=== PATIENT | female | born 1950 | race Caucasian/White ===

== ENCOUNTER 2018-06-23 17:29 | Emergency (ER) | payer MEDICARE ==
[~2018-06-23] VITALS: Ht 172.7 cm; Wt 72.0 kg
[~2018-06-23 17:29] MED LIST: APIX5TAB3 PO; BUPR200T2 PO; LISI40TA4 PO; SOTA80TA46 PO; THYR180T2 PO; TRAZ150T78 PO
[2018-06-23 18:34] VITALS: BP 139/68
--- NOTE | 2018-06-23 20:25 | NUR ---
PT TO XRAY
[2018-06-23] MEDS ORDERED: ACET1TAB12 PO (20:51)
== END 2018-06-23 21:05 | disposition home or self-care (01) ==
LOC: ER 17:29
DX: M25.552 Pain in left hip (principal); M25.551 Pain in right hip; R20.0 Anesthesia of skin; I10 Essential (primary) hypertension; Z98.890 Other specified postprocedural states; Z88.8 Allergy status to other drugs, medicaments and biological substances; Z79.899 Other long term (current) drug therapy; W01.0XXA Fall on same level from slipping, tripping and stumbling without subsequent striking against object, initial encounter; Y93.89 Activity, other specified; Y92.89 Other specified places as the place of occurrence of the external cause; Y99.8 Other external cause status
CPT/HCPCS: 72170; 72190; 99284

== ENCOUNTER 2019-03-10 17:48 | Emergency (ER) | payer MEDICARE ==
[~2019-03-10] VITALS: Ht 172.7 cm; Wt 72.7 kg
[~2019-03-10 17:48] MED LIST changes: +ACET1TAB12 PO
[2019-03-10 17:54] VITALS: BP 136/70
== END 2019-03-10 18:55 | disposition home or self-care (01) ==
LOC: ER 17:49
DX: S42.031A Displaced fracture of lateral end of right clavicle, initial encounter for closed fracture (principal); I10 Essential (primary) hypertension; F41.9 Anxiety disorder, unspecified; F32.9 Major depressive disorder, single episode, unspecified; F10.99 Alcohol use, unspecified with unspecified alcohol-induced disorder; Z98.890 Other specified postprocedural states; Z85.3 Personal history of malignant neoplasm of breast; Z88.6 Allergy status to analgesic agent; Z79.899 Other long term (current) drug therapy; W01.0XXA Fall on same level from slipping, tripping and stumbling without subsequent striking against object, initial encounter; Y93.89 Activity, other specified; Y92.89 Other specified places as the place of occurrence of the external cause; Y99.8 Other external cause status; Y90.9 Presence of alcohol in blood, level not specified
CPT/HCPCS: 73030; 99284

== ENCOUNTER 2020-06-22 19:27 | Emergency (ER) | payer MEDICARE ==
[~2020-06-22] VITALS: Ht 172.7 cm; Wt 73.0 kg
[2020-06-22] MEDS ORDERED: morphine 4 MG/ML inj SYRINge IV ONE (19:40)
[2020-06-22] MEDS ORDERED: ondansetron/PF 4mg/2ml inj IV ONE ×3 (19:40→21:15)
[2020-06-22] MEDS ORDERED: etomidate 2mg/ml inj. IV ONE (20:30)
[2020-06-22] MEDS ORDERED: ONDA4TAB6 PO ×2 (20:30→21:58)
[2020-06-22] MEDS ORDERED: fentaNYL/PF 50MCG/1 ML 2ML syringe IV ONE ×3 (20:30→22:00)
[2020-06-22] MEDS ORDERED: HYDR-3965 PO (20:30)
[2020-06-22] MEDS ORDERED: HYDR-4353 PO (21:58)
[2020-06-22] MEDS ORDERED: ondansetron 4mg rapidly disintigrating tab PO ONE (22:00)
[2020-06-22] MEDS ORDERED: HYDROcodone/acetaminophen 10/325mg tab PO ONE (22:00)
[2020-06-22 23:29] VITALS: BP 130/54
== END 2020-06-22 22:48 | disposition home or self-care (01) ==
LOC: ER 19:29
DX: S43.004A Unspecified dislocation of right shoulder joint, initial encounter (principal); S00.03XA Contusion of scalp, initial encounter; S06.0X0A Concussion without loss of consciousness, initial encounter; S42.201A Unspecified fracture of upper end of right humerus, initial encounter for closed fracture; M25.511 Pain in right shoulder; I48.91 Unspecified atrial fibrillation; I10 Essential (primary) hypertension; F32.9 Major depressive disorder, single episode, unspecified; F41.9 Anxiety disorder, unspecified; Z85.3 Personal history of malignant neoplasm of breast; Z98.890 Other specified postprocedural states; Z88.8 Allergy status to other drugs, medicaments and biological substances; Z79.899 Other long term (current) drug therapy; W18.39XA Other fall on same level, initial encounter; Y93.89 Activity, other specified; Y92.89 Other specified places as the place of occurrence of the external cause; Y99.8 Other external cause status
CPT/HCPCS: 23650; 70450; 72125; 73020; 73030; 94799; 96374; 99152; 99285; J2270; J2405; J3010; 96375; 96376

== ENCOUNTER 2020-09-26 18:43 | Emergency (ER) | payer MEDICARE ==
[~2020-09-26] VITALS: Ht 172.7 cm; Wt 73.6 kg
[~2020-09-26 18:43] MED LIST changes: +LISI40TA13 PO; -LISI40TA4 PO; +ONDA4TAB6 PO
[2020-09-26 18:56] VITALS: BP 135/79
[2020-09-26] MEDS ORDERED: ketorolac tromethamine 15mg/ml inj. IM ONE (20:55)
== END 2020-09-26 21:24 | disposition home or self-care (01) ==
LOC: ER 18:44
DX: M25.511 Pain in right shoulder (principal); M25.521 Pain in right elbow; I48.91 Unspecified atrial fibrillation; I10 Essential (primary) hypertension; F41.9 Anxiety disorder, unspecified; F32.9 Major depressive disorder, single episode, unspecified; Z72.89 Other problems related to lifestyle; Z98.890 Other specified postprocedural states; Z85.3 Personal history of malignant neoplasm of breast; Z91.041 Radiographic dye allergy status; Z79.899 Other long term (current) drug therapy; Z79.01 Long term (current) use of anticoagulants; W01.0XXA Fall on same level from slipping, tripping and stumbling without subsequent striking against object, initial encounter; Y93.89 Activity, other specified; Y92.89 Other specified places as the place of occurrence of the external cause; Y99.8 Other external cause status
CPT/HCPCS: 73030; 73080; 96372; 99284; J1885

== ENCOUNTER 2022-05-05 13:43 | Emergency (ER) | payer MEDICARE ==
[~2022-05-05] VITALS: Ht 175.3 cm; Wt 64.5 kg
[2022-05-05 13:46] VITALS: BP 123/70
--- NOTE | 2022-05-05 13:59 | NUR ---
SPOKE TO DRAGAN MCGRAW, CALL OFF TRAUMA, SINCE NO LOC. PT TO GO TO CT.
[2022-05-05] MEDS ORDERED: HYDROcodone/acetaminophen 10/325mg tab PO ONE (15:40)
== END 2022-05-05 16:45 | disposition home or self-care (01) ==
LOC: ER 13:44
DX: M25.562 Pain in left knee (principal); Z04.3 Encounter for examination and observation following other accident; I10 Essential (primary) hypertension; Z91.041 Radiographic dye allergy status; W19.XXXA Unspecified fall, initial encounter; Y93.89 Activity, other specified; Y92.89 Other specified places as the place of occurrence of the external cause; Y99.8 Other external cause status; R51.9 Headache, unspecified; M54.2 Cervicalgia
CPT/HCPCS: 70450; 72125; 73502; 99284

== ENCOUNTER → 2022-07-15 | Outpatient (CLI) | payer MEDICARE | END | disposition home or self-care (01) | LOC: RAD 13:43 | PROVIDERS: ATTEND Otolaryngology | DX: J31.0 Chronic rhinitis (principal); J34.2 Deviated nasal septum; R26.89 Other abnormalities of gait and mobility | CPT/HCPCS: 70486 ==

== ENCOUNTER 2022-12-20 01:28 | Emergency (ER) | payer MEDICARE | END 2022-12-20 02:20 | disposition left against medical advice (07) | LOC: ER 02:20 | DX: T14.8XXA Other injury of unspecified body region, initial encounter (principal); Z53.21 Procedure and treatment not carried out due to patient leaving prior to being seen by health care provider; W55.01XA Bitten by cat, initial encounter; Y93.89 Activity, other specified; Y92.89 Other specified places as the place of occurrence of the external cause; Y99.8 Other external cause status ==

== ENCOUNTER 2023-03-03 15:59 | Outpatient (CLI) | payer MEDICARE ==
[2023-03-03 17:58] LABS: BASOPHILS # (AUTO) 0.1 X10'3 (0-0.2); BASOPHILS % (AUTO) 1.1 % (0-1); EOSINOPHILS # (AUTO) 0.1 X10'3 (0-0.9); EOSINOPHILS % (AUTO) 1.3 % (0-6); HEMATOCRIT 34.5 % (35.0-45.0); HEMOGLOBIN 11.6 g/dl (12.0-16.0); LYMPHOCYTES # (AUTO) 1.5 X10'3 (1.1-4.8); LYMPHOCYTES % (AUTO) 16.8 % (21-51); MEAN CORPUSCULAR HEMOGLOBIN 29.7 PG (27.0-31.0); MEAN CORPUSCULAR HGB CONC 33.7 g/dL (33.0-36.5); MEAN CORPUSCULAR VOLUME 88.1 FL (78-98); MEAN PLATELET VOLUME 9.4 FL (7.4-10.4); MONOCYTES # (AUTO) 0.9 X10'3 (0-0.9); MONOCYTES % (AUTO) 9.7 % (2-12); NEUTROPHILS # (AUTO) 6.5 X10'3 (1.8-7.7); NEUTROPHILS % (AUTO) 71.1 % (42-75); PLATELET COUNT 181 X10'3 (140-440); RED BLOOD COUNT 3.91 X10'6 (4.20-5.60); WHITE BLOOD COUNT 9.1 X10'3 (4.5-11.0)
[2023-03-03 17:59] LABS: ALANINE AMINOTRANSFERASE 24 U/L (12-78); ALBUMIN 3.2 G/DL (3.4-5.0); ALBUMIN/GLOBULIN RATIO 0.7 (1.1-1.5); ALKALINE PHOSPHATASE 89 IU/L (46-116); ANION GAP 9 (8-16); ASPARTATE AMINO TRANSFERASE 23 U/L (10-37); BILIRUBIN,TOTAL 0.4 MG/DL (0.1-1.0); BLOOD UREA NITROGEN 17 MG/DL (7-18); BUN/CREATININE RATIO 18.5 (10.0-20.0); CALCIUM 9.4 MG/DL (8.5-10.1); CHLORIDE 103 MMOL/L (99-107); CREATININE 0.92 MG/DL (0.40-0.90); GLUCOSE 94 MG/DL (70-104); POTASSIUM 4.5 MMOL/L (3.5-5.1); SODIUM 137 MMOL/L (135-145); TOTAL PROTEIN 7.7 G/DL (6.4-8.2); eGFR 60 ML/MIN
[2023-03-03 18:09] LABS: THYROID STIMULATING HORMONE 0.11 ulU/ml (0.34-4.50)
[2023-03-03 18:20] LABS: HEMOGLOBIN A1C 5.5 % (4.5-6.2)
[2023-03-03 18:23] LABS: RHEUM FACTOR QUAL REFLEX TITER NEGATIVE (Neg)
== END 2023-03-03 23:59 | disposition home or self-care (01) ==
LOC: LAB 15:59
PROVIDERS: ATTEND Nurse Practitioner Family
DX: R20.2 Paresthesia of skin (principal); Z79.899 Other long term (current) drug therapy; W19.XXXS Unspecified fall, sequela
CPT/HCPCS: 36415; 80053; 82164; 82595; 82607; 82746; 82784; 83036; 84425; 84439; 84443; 85025; 85651; 86038; 86140; 86235; 86256; 86334; 86430; 86592; 86617; 86803; 87389; 87522

== ENCOUNTER 2024-09-28 14:00 | Outpatient (CLI) | payer MEDICARE | END 2024-09-28 23:59 | disposition home or self-care (01) | LOC: MRI02 14:00 | PROVIDERS: ATTEND Physician Assistant | DX: M51.17 Intervertebral disc disorders with radiculopathy, lumbosacral region (principal); M54.50 Low back pain, unspecified; M41.9 Scoliosis, unspecified; M47.27 Other spondylosis with radiculopathy, lumbosacral region; M48.07 Spinal stenosis, lumbosacral region; M43.16 Spondylolisthesis, lumbar region | CPT/HCPCS: 72148 ==

== ENCOUNTER 2024-11-01 15:12 | Inpatient (IN) | payer MEDICARE ==
[~2024-11-01] VITALS: Ht 175.3 cm; Wt 72.7 kg
--- NOTE | 2024-11-01 15:27 | Physician Documentation ---
History of Present Illness ~ Chief Complaint: Stroke Alert Stated Complaint: SLURRED SPEACH TINGLING HANDS Time Seen by MD: 15:26 Primary Medical Doctor: leanne lopez/ [facility] HPI 74-year-old female, history of atrial fibrillation on Eliquis, who presents with difficulty with speech History is obtained from the patient and her . They state that she was last seen normal last night. This morning her states that she was having fluctuating difficulty with her speech, sometimes had dysarthria and was very difficult to understand. She also seemed to have some trouble walking and seemed off balance. She reports that she had tingling and numbness to both hands and feet earlier. Currently she states that her symptoms seem somewhat better although her speech is still not back to normal. Reports generalized weakness in her legs. The tingling and numbness in her extremities has improved. She does report being under lot of stress yesterday, and had some bad dreams last night. No history of stroke. She has been taking her Eliquis regularly. No fevers or infectious symptoms. Medication Reconciliation Allergies: Coded Allergies: Iodine and Iodide Containing Produc (Unverified Allergy, Unknown, 11/01/24) Scheduled Apixaban (Eliquis), 5 MG PO BID, (Reported) Bupropion HCl (Wellbutrin Sr), 1 TAB PO Q12H, (Reported) Diltiazem Hcl SR* (Cardizem SR*), 2 CAP PO BID, (Reported) Lamotrigine* (Lamictal Xr*), 1 TAB PO DAILY, (Reported) Quetiapine Fumarate* (Seroquel*), 1 TAB PO HS, (Reported) Sacubitril/Valsartan (Entresto 24 mg-26 mg Tablet), 1 TAB PO Q12H, (Reported) Thyroid,Pork (Sage Thyroid), 60 MG PO DAILY, (Reported) Discontinued Medications Acetaminophen with Codeine (Tylenol with Codeine #3 Tablet), 1 TAB PO Q6H PRN Discontinued Reason: patient no longer taking Bupropion Hcl (Wellbutrin Sr), 200 MG PO DAILY, (Reported) Discontinued Reason: patient no longer taking Lisinopril* (Lisinopril*), 10 MG PO DAILY, (Reported) Discontinued Reason: patient no longer taking Ondansetron Hcl (Zofran), 1 TAB PO Q6H Discontinued Reason: patient no longer taking Sotalol HCl (Sotalol), 80 MG PO BID, (Reported) Discontinued Reason: patient no longer taking Trazodone Hcl (Trazodone Hcl), 150 MG PO HS, (Reported) Discontinued Reason: patient no longer taking Past Medical History Past Medical History: Atrial Fibrillation, Hypertension, Breast Cancer, *PSYCH*, Anxiety, Depression Past Surgical History: orthopedic surgeries Alcohol Use: Occasionally Drug Use: none Lives with: Family Lives In: Home Occupation: retired Review of Systems Constitutional: Denies: fever Neurological: Reports: speech problem, dizziness, left sided numbness, right sided numbness, problems walking Physical Exam Vital Signs: Temperature: 98.1, Heart Rate: 69, Respiratory Rate: 16, BP: 115/68, Pulse Oximetry: 99, Weight: 72.730 Oxygen Flow Rate: 0 General Appearance General: This is a pleasant and overall well-appearing older female, at bedside HEENT: Atraumatic, oropharynx is moist Heart: Regular rate, but irregular rhythm, appears atrial fibrillation on the monitor Lungs: Clear breath sounds bilateral, normal work of breathing, normal oxygen saturation on room air Abdomen: Soft, nondistended, nontender all quadrants Extremities: Warm and well-perfused Neuro: Alert and oriented. No facial droop. The patient does have slightly slow speech pattern, but only mild dysarthria. Extraocular movements appear intact, no nystagmus. Vision grossly normal. Normal sensation light touch in all 4 extremities. She does seem to have some mild weakness in the right leg compared to the left, and does have some trouble lifting it holding it up off the bed. Appears to have normal strength in the left leg. Normal strength in both hands. Ambulation was not attempted. Psychiatric: Calm and cooperative with exam Progress Results/Orders Results/Orders Medications Received in ER Medications (Trade) Dose Ordered Sig/Bharti Route PRN Reason Start Time Stop Time Status Last Admin Dose Admin (Benadryl inj.) 25 mg ONCE ONCE IV 11/01/24 17:40 11/01/24 17:41 DC 11/01/24 18:04 25 MG Vital Signs 11/01/24 11/01/24 11/01/24 11/01/24 15:16 15:30 17:04 18:41 Temp 98.1 Pulse 69 89 67 Resp 16 15 15 B/P (MAP) 115/68 130/87 (101) 135/65 (88) Pulse Ox 99 98 100 100 O2 Delivery Room Air* O2 Flow Rate 0 0 FiO2 21 Laboratory Tests Test 11/01/24 15:24 11/01/24 15:26 Glucometer 122 H White Blood Count 5.4 Red Blood Count 4.43 Hemoglobin 12.9 Hematocrit 38.6 Mean Corpuscular Volume 87.2 Mean Corpuscular Hemoglobin 29.0 Mean Corpuscular Hemoglobin Concent 33.3 Red Cell Distribution Width 15.3 H Platelet Count 215 Mean Platelet Volume 9.1 Neutrophils (%) (Auto) 44.4 Lymphocytes (%) (Auto) 39.9 Monocytes (%) (Auto) 10.5 Eosinophils (%) (Auto) 3.8 Basophils (%) (Auto) 1.4 H Neutrophils # (Auto) 2.4 Lymphocytes # (Auto) 2.1 Monocytes # (Auto) 0.6 Eosinophils # (Auto) 0.2 Basophils # (Auto) 0.1 CBC Comment Prothrombin Time 10.9 INR International Normalized Ratio 1.1 Activated Partial Thromboplast Time 27 Coagulation Comments Sodium Level 144 Potassium Level 4.2 Chloride Level 108 H Carbon Dioxide Level 26.7 Anion Gap 9 Blood Urea Nitrogen 24 H Creatinine 1.24 H Estimated GFR/1.73 m2 42 BUN/Creatinine Ratio 19.4 Glucose Level 116 H Calcium Level 9.1 Albumin 3.5 Thyroid Stimulating Hormone (TSH) 3.28 Chemistry Comments EKG/XRAY/CT/US/VASC/MRI EKG : Additional Comment I personally interpreted the EKG and this shows: Atrial fibrillation, rate 75, nonspecific T-wave changes in lead 3, no STEMI Chest X-Ray : Additional Comments I personally reviewed the x-ray, and it shows: No focal consolidation, normal mediastinum, no pulmonary edema CT : Impression I personally reviewed the CT scan, and this shows no intracranial hemorrhage, mass, or obvious abnormality Medical Decision Making Findings Dr. Gonsalves: Assume care of patient to follow up CTA. CTA is negative. We will admit for further workup for possible stroke. No TNK indicated Differential Dx:Considerations: Include: CVA, Electrolyte imbalance, Encephalopathy, Mass lesion, Subarachnoid Hemorrhage, TIA, Other Additional Information Differential includes stress reaction or conversion disorder Assessment The patient presents with difficulty with speech and ambulation as well as some paresthesias. Her symptoms have been ongoing since last night and she was not a candidate for tPA. She was taken for emergent brain imaging which shows no intracranial hemorrhage. Labs are grossly unremarkable. Stroke neurology consulted, see their note for further information. A CTA of the head and neck is pending, the patient was pretreated with IV Benadryl for possible iodine allergy. If this is normal she will require admission for further evaluation and testing including MRI. The exact cause of her symptoms is unclear, but stroke remains high in the differential. Departure Admitted to Inpatient Unit: yes, to hospitalist Impression: Primary Impression: Possible stroke Referrals: NO PRIMARY CARE PROVIDER (PCP) Critical Care Note Total Time (mins): 45 Critical Care Note The very real possibility of a deterioration of this patient's condition required the highest level of my preparedness for sudden, emergent intervention. I provided critical care services, which included medication orders, frequent reevaluations of the patient's condition and response to treatment, ordering and reviewing test results, and discussing the case with various consultants. Excludes time spent performing separately billable procedures. The critical care time associated with the care of the patient was 45 minutes not counting procedures Signature Scribe Signature: na Attestation: The note accurately reflects work and decisions made by me.César Gonsalves MD 11/01/24 19:02 ILAN Wasserman MD November 01, 2024 15:27 CÉSAR GONSALVES MD November 01, 2024 19:02
[2024-11-01 15:38] LABS: BASOPHILS # (AUTO) 0.1 X10'3 (0-0.2); BASOPHILS % (AUTO) 1.4 % (0-1); EOSINOPHILS # (AUTO) 0.2 X10'3 (0-0.9); EOSINOPHILS % (AUTO) 3.8 % (0-6); HEMATOCRIT 38.6 % (35.0-45.0); HEMOGLOBIN 12.9 g/dl (12.0-16.0); LYMPHOCYTES # (AUTO) 2.1 X10'3 (1.1-4.8); LYMPHOCYTES % (AUTO) 39.9 % (21-51); MEAN CORPUSCULAR HGB CONC 33.3 g/dL (33.0-36.5); MEAN CORPUSCULAR VOLUME 87.2 FL (78-98); MEAN PLATELET VOLUME 9.1 FL (7.4-10.4); MONOCYTES # (AUTO) 0.6 X10'3 (0-0.9); MONOCYTES % (AUTO) 10.5 % (2-12); NEUTROPHILS # (AUTO) 2.4 X10'3 (1.8-7.7); NEUTROPHILS % (AUTO) 44.4 % (42-75); PLATELET COUNT 215 X10'3 (140-440); RED BLOOD COUNT 4.43 X10'6 (4.20-5.60); RED CELL DISTRIBUTION WIDTH 15.3 % (11.5-14.5); WHITE BLOOD COUNT 5.4 X10'3 (4.5-11.0)
--- NOTE | 2024-11-01 15:40 | ELECTROCARDIOGRAPH REPORT ---
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 Sin Jasso Measurements Intervals [place] Rate: 75 P: 0 NE: 0 QRS: 64 QRSD: 88 T: 15 QT: 380 QTc: 425 Interpretive Statements Atrial fibrillation Low voltage, precordial leads Abnormal R-wave progression, early transition Electronically Signed On 11-07-2024 21:45:[address] Sin Jasso Please click the below link to view image of tracing.
--- NOTE | 2024-11-01 15:47 | RADIOLOGY REPORT ---
CT CT STROKE ALERT Indication: Stroke Alert EXAM DATE: 11/01/2024 03:28 PM COMPARISON: CT HEAD on DOS: 05/05/22, CT HEAD on DOS: 06/22/20 TECHNIQUE: CT of the head without intravenous contrast. RADIATION DOSE: CTDIvol: 57 mGy, DLP: 1042 mGy*cm FINDINGS: There is no intracranial hemorrhage. There is no extra-axial fluid, mass, mass effect or midline shif t. The ventricles are midline and normal in size. Basilar cisterns are patent. There are meiu-wf-ktxn rate periventricular and subcortical white matter chronic microvascular ischemic changes. There is mi ld global cerebral volume loss. The paranasal sinuses and mastoids are well-pneumatized. Imaged portion of the orbits are unremarkabl e. IMPRESSION: 1. No intracranial hemorrhage or mass effect. 2. Jpnw-fj-kvjnwrkg chronic microvascular ischemic changes.
[2024-11-01 15:56] LABS: ALBUMIN 3.5 G/DL (3.4-5.0); ANION GAP 9 (8-16); BLOOD UREA NITROGEN 24 MG/DL (7-18); BUN/CREATININE RATIO 19.4 (10.0-20.0); CALCIUM 9.1 MG/DL (8.5-10.1); CHLORIDE 108 MMOL/L (99-107); CREATININE 1.24 MG/DL (0.40-0.90); GLUCOSE 116 MG/DL (70-104); POTASSIUM 4.2 MMOL/L (3.5-5.1); SODIUM 144 MMOL/L (135-145); TOTAL CARBON DIOXIDE 26.7 MMOL/L (24-32); eCRCL 42 ML/MIN; eGFR 42 ML/MIN
[2024-11-01] MEDS ORDERED: LAMO50TA PO (16:02)
[2024-11-01] MEDS ORDERED: QUET-1 PO (16:02)
[2024-11-01] MEDS ORDERED: BUPR150T8 PO (16:02)
[2024-11-01] MEDS ORDERED: CARSR60C PO (16:02)
[2024-11-01] MEDS ORDERED: SACU1TAB PO (16:02)
[2024-11-01 16:03] LABS: APTT 27 SECONDS (22-32); INR 1.1 INR; PROTHROMBIN TIME 10.9 SECONDS (9.0-12.0)
--- NOTE | 2024-11-01 16:13 | RADIOLOGY REPORT ---
CHEST RADIOGRAPH Indication: Stroke Alert Technique: Single frontal view of the chest was obtained Comparison: None FINDINGS: Lines and Tubes: None Lungs: No focal consolidation. Pleura: No effusion. No pneumothorax. Cardiomediastinal contours: Unremarkable Bones: No acute osseous abnormality. IMPRESSION: No acute cardiopulmonary disease.
[2024-11-01 16:20] LABS: THYROID STIMULATING HORMONE 3.28 ulU/ml (0.34-4.50)
[2024-11-01] MEDS ORDERED: iohexol 350MG/ML 100ml bottle IV ONE (17:51)
[2024-11-01] MEDS: diphenhydrAMINE 50 mg/ml inj IV ONE (18:04)
--- NOTE | 2024-11-01 18:39 | [facility] CONSULT REPORT ---
[facility] Procedure Note [facility] Procedure Note Consult [facility] Note # Demographics Consult Type: Acute Stroke Level 2 (4.5-24 hrs) Patient Location: Emergency Room First Name: GLADIS Last Name: MANFRED Date of : 1950 Age: 74 Gender: Female Facility: [facility] Time of Initial Page (): 11/01/2024 16:45 Time of Return Call (): 11/01/2024 16:46 # HPI Chief Complaint: - speech changes History: 74 y/o F presented with slurred speech, generalized weakness, began last night at 9 PM. She feels her yareli is slow with her speech and she had some generalized weakness and tingling b/l. She denies a headache or change in vision. # Scores Time of exam and NIHSS ([place] ): 11/01/2024 16:58 Level of Consciousness 1a: [0] = Alert; keenly responsive LOC Questions 1b: [0] = Answers both questions correctly LOC Commands 1c: [0] = Performs both tasks correctly Best Gaze 2: [0] = Normal Visual 3: [0] = No visual loss Facial Palsy 4: [0] = Normal symmetrical movements Motor Arm Left 5a: [1] = Drift Motor Arm Right 5b: [1] = Drift Motor Leg Left 6a: [0] = No drift Motor Leg Right 6b: [3] = No effort against gravity Limb Ataxia 7: [0] = Absent Sensory 8: [0] = Normal Best Language 9: [1] = Rxis-hn-csioygcj aphasia Dysarthria 10: [0] = Normal Extinction and Inattention 11: [0] = No abnormality NIHSS Total: 6 # PMH-FH-SH Past Medical History: - A-fib [place]imotos Medications: - NOAC # Data Head CT: - no bleed - per radiologist read # Assessment Impression: - Ischemic Stroke (Acute) # Plan Thrombolytic/Intervention: Possible IA candidate Thrombolytic Exclusion: > 4.5 hours Possible IA Candidate: - CTA pending Labs: - CBC - comprehensive metabolic panel - hemoglobin A1c - lipid panel - ua - TSH - troponin Imaging: (urgency: STAT): - CT Angiogram Head and CT Angiogram Neck Imaging: (urgency: routine): - MRI Brain without contrast Diagnostic Test: - echo with bubble study Therapy/Evaluation: - NPO until swallow evaluation - PT/OT evaluation Medication: - anticoagulation with NOAC - start statin with goal of LDL < 70 DVT Prophylaxis: - SCD IA Management Recommendations: - urgent consult to Neuro Interventional Radiology for potential thrombectomy if CTA shows large vessel occlusion Other: - If patient has any neurological deterioration please call me back immediately - telemetry monitoring - I have discussed my recommendations with the referring provider - LDL < 70 - permissive hypertension Disposition: admit # Logistics Attestation of consult completion: The patient is located at: [facility]. Facility staff participated in the visit. I performed this telemedicine visit from my offsite office utilizing interactive 2 way audio and visual telecommunication technology. Total time spent in telemedicine encounter: I spent 20 minutes reviewing clinical data and/or imaging, obtaining history, examining the patient, communicating with the onsite care team, and in preparation of this report. # Demographics First Name: GLADIS Last Name: MANFRED Facility: [facility] Electronically signed at 11/01/2024 18:39 ([place] Time) by Sulma Hancock MD Neuro Consult Order placed for: Yes SULMA HANCOCK MD November 01, 2024 18:39
--- NOTE | 2024-11-01 19:00 | RADIOLOGY REPORT ---
Clinical History stroke, difficulty with speech and right leg weak Comparison CT HEAD on 11/01/2024, 202 images. Technique: MIPS reconstruction was performed in multiple planes. All CT scans at this medical facility are performed using dose modulation techniques as appropriate t o a performed exam including the following: Automated exposure control was utilized; adjustment of th e mA and/or kV according to patient size; and use of iterative reconstruction technique. All CT studies are reported to the Dose Index Registry of the [employer]. 3D images be reconstructed or obtained with maximum intensity projection postprocessing (MIP), volume rendered or other 3D technique. Validated velocity measurements with angiographic measurements, velocity criteria are extrapolated fr om diameter data as defined by the Society of Radiologists in Ultrasound Consensus Conference Radiolo gy 2003; 229; 340-346. There is 0 % stenosis using NASCET criteria. Contrast: 100 ML OMNIPAQUE 350 Radiation Dose: CTDI (mGy): 27.31; DLP (mGy-cm): 968.25 GLADIS SHEARER, [id number] TECHNIQUE: CT angiography of the head and neck was performed with 3D/MIP coronal, sagittal, and bila teral oblique reconstructions for evaluation of the cervical vasculature as well as the [place] of Romie lis. FINDINGS: CTA Neck: The imaged aortic arch is normal. The innominate and bilateral subclavian arteries are patent. The right common and internal carotid arteries are patent. The left common and internal carotid arteries are patent. The right vertebral artery is patent. The left vertebral artery is patent. No evidence of hemodynamically significant stenosis, dissection, or pseudoaneurysm. CTA Head: No significant intracranial atherosclerotic disease. The right intracranial internal carotid artery is patent. The right middle cerebral artery and its major branches are patent. The right anterior cerebral artery and its major branches are patent. The left intracranial internal carotid artery is patent. The left middle cerebral artery and its major branches are patent. The left anterior cerebral artery and its major branches are patent. The vertebrobasilar system is patent. The posterior inferior cerebellar arteries are patent. The anterior inferior cerebellar arteries are patent. The superior cerebellar arteries are patent. The posterior cerebral arteries are patent. There is no aneurysm, arterial occlusion, or vascular malformation. While the study was optimized for arterial evaluation, the dural venous sinuses demonstrates no defin ite evidence of thrombosis. Nonvascular Findings: The soft tissues of the neck are grossly unremarkable. The visualized lungs are clear. No aggressive or acute osseous lesion identified. IMPRESSION: CTA HEAD: No vessel cut off, significant stenosis, or saccular aneurysm. No significant intracranial atherosclerotic disease. CTA NECK: No hemodynamically significant stenosis, dissection, or pseudoaneurysm. This report was electronically signed by Ashok England MD on 11/01/2024 6:56:59 PM.
[2024-11-01] MEDS ORDERED: potassium Cl 40MEQ/1/2NS 520ml 520 ML IV PRN (19:45)
[2024-11-01] MEDS ORDERED: ondansetron/PF 4mg/2ml inj IV PRN (19:45)
[2024-11-01] MEDS ORDERED: acetaminophen 325mg tablet PO PRN (19:45)
[2024-11-01] MEDS ORDERED: mag hydrox/Alum hydrox/simeth 30ml oral suspension PO PRN (19:45)
[2024-11-01] MEDS ORDERED: magnesium hydroxide 30ml (MOM) UD suspension PO PRN (19:45)
[2024-11-01] MEDS ORDERED: potassium Cl 20 mEq SR tablet PO PRN ×2 (19:45)
[2024-11-01] MEDS ORDERED: magnesium sulf-water 2g/50mL 50 ML IV PRN (19:45)
[2024-11-01] MEDS ORDERED: magnesium Cl slow-release 64mg tablet PO PRN (19:45)
[2024-11-01] MEDS ORDERED: magnesium sulf-water 4G/100mL 100 ML IV PRN (19:45)
[2024-11-01] MEDS: diltiazem SR 60mg capsule (twice daily) PO SCH (20:00)
[2024-11-01] MEDS: buPROPion SR 150mg tablet PO SCH (20:00)
[2024-11-01] MEDS: K and/or MAG REPLACEMENT MC SCH (20:00)
[2024-11-01] MEDS: sacubitril/valsartan 24mg-26mg tablet PO SCH (20:00)
--- NOTE | 2024-11-01 20:00 | HISTORY AND PHYSICAL-Residence ---
History & Physical Providers to CC Resident Creating Document: HOLLEY SOTO, JOHANA ~ History of Present Illness Primary Medical Doctor: leanne lopez/ [facility] Reason for Admit\Complaint: CVA/TIA History of Present Illness 74-year-old female with PMH of AFib, HTN, depression, anxiety presented to ED with complaints of loss of balance, coordination, weakness on right lower extremity and difficulty in speech. Patient herself provided the history in ED. stated that she was fine until yesterday night. Today morning she woke up with difficulty in speech and difficulty in finding words. When she attempted to go to restroom she started having balance and coordination problem along with weakness in right lower extremity. She had difficulty in walking requiring assistance for ambulation. She also endorsed tingling in all four extremities. The symptoms were slowly started improving and currently she feels much better. Right lower extremity weakness still persists but improved compared to morning. Her speech is reverted to baseline. Tingling sensation still persisted. Patient has mild headache which she rated as 3/10 severity. Denied vision problems, double vision, nausea, vomiting, vertigo, urine incontinence, bowel incontinence, other significant subjective history. Denied LOC and lightheadedness, dizziness. Denied abdominal and urinary symptoms. Patient never experienced this type of symptoms in the past. Allergies: Coded Allergies: Iodine and Iodide Containing Produc (Unverified Allergy, Unknown, 11/01/24) Home Medications Home Medications Active Reported Entresto 24 mg-26 mg Tablet (Sacubitril/Valsartan) 24 Mg-26 Mg Tablet 1 Tab PO Q12H 30 Days Lamictal Xr* (Lamotrigine) 50 Mg Tab.er2.24 1 Tab PO DAILY Seroquel* (Quetiapine Fumarate) 100 Mg Tablet 1 Tab PO HS 30 Days Cardizem SR* (Diltiazem HCl) 60 Mg Cap.sr.12h 2 Cap PO BID Wellbutrin Sr (Bupropion HCl) 150 Mg Tablet.er 1 Tab PO Q12H 30 Days Eliquis (Apixaban) 5 Mg Tablet 5 Mg PO BID [place] Thyroid (Thyroid,Pork) 180 Mg Tablet 60 Mg PO DAILY Past Medical History Past Medical History Atrial fibrillation, hypertension, depression, anxiety. History of breast cancer as per past medical records. Past Surgical History Surgical History Comment Shoulder surgery Past Social History Social History Comment Patient lives with , she is completely independent at her baseline, ambulates without assistance. PCP at [facility], Drinks alcohol occasionally, two drinks per week. Denied smoking, marijuana and other drug use Alcohol Use: Occasionally Drug Use: None Lives with: Family Lives In: Home Occupation: retired ROS All Other Systems: Reviewed and Negative Constitutional: Denies: fever Neurological: Reports: speech problem, dizziness, left sided numbness, right sided numbness, problems walking Exam Vitals: Vital Signs Date Time Temp Pulse Resp B/P (MAP) Pulse Ox O2 Delivery O2 Flow Rate FiO2 11/01/24 18:41 67 15 135/65 (88) 100 11/01/24 15:30 Room Air* 0 21 11/01/24 15:16 98.1 General: General: Awake and Alert, no acute distress. HEENT: Conjunctiva pink, Sclera clear, Mucus Membranes moist. Neck: Supple without masses and tenderness. Resp: Unlabored. Lungs clear to auscultation bilaterally. Heart: Regular Rate and rhythm, normal S1 and S2 without murmur, rub or gallop. Abdomen: Soft and non tender no organomegaly Extremities: No cyanosis,clubbing or edema. Skin: Warm and Dry. 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 Coherent. Speech and language normal response without delay. Memory intact. Motor: 5/5 strength in all extremities. No pronator drift. Normal tendon reflexes Sensory: Intact touch, temperature, pain Cranial nerves: Intact Diagnostic Data Last Recorded Lab Results: 11/01/24 1526 11/01/24 1526 Diagnostic Data: Laboratory Tests Test 11/01/24 15:26 Prothrombin Time 10.9 SECONDS (9.0-12.0) INR International Normalized Ratio 1.1 INR Activated Partial Thromboplast Time 27 SECONDS (22-32) Coagulation Comments Advance Care Planning Advanced Care plannin - 30 Minutes (Advanced care planning discussed at the bedside for approximately 15-20 minutes. All resuscitative measures including chest compressions, mechanical ventilation, defibrillation explained in detail. Patient acknowledged understanding all the resuscitative measures and opted for full code status.) Additional Plan 74-year-old female with PMH of AFib, HTN, depression, anxiety presented to ED with difficulty speech, tingling in all extremities, loss of balance and coordination, left lower extremity weakness with ambulatory difficulty requiring assistance from morning. Last well known was yesterday night. Patient currently at her baseline. CT and CTA angio head and neck did not show any acute stroke. Patient getting admitted for neuro monitoring and further stroke workup. Assessment and plan: CVA/TIA: Admitted for neuro monitoring Speech difficulty, tingling, loss of balance, coordination, right lower extremity weakness On ED examination patient is back to her baseline CT head, CT angio head and neck did not show acute abnormalities EKG with evidence of rate controlled AFib NIHSS: 0 ABCD2 score: Five points with moderate risk Plan: Admit to neuro floor and do regular neuro checks Aspirin 81 mg, atorvastatin 80 mg, continue Eliquis 5 mg b.i.d. Telemetry monitoring PTOT evaluation Follow up MRI brain, 2D echo, lipid panel, A1c GARETH secondary to vasomotor nephropathy: Baseline creatinine 0.92, current creatinine 1.24 Probably related to dehydration Started NS at 100 mL/hour Monitor CMP and DC IV fluids as able Rate controlled AFib: Continue home meds Eliquis, diltiazem Follow up 2D echo tomorrow Telemetry monitoring Hypertension: Current blood pressure within normal limits Continue home meds diltiazem and Entresto after 24 hours of neuro monitoring Permissive hypertension Depression /anxiety: Continue home meds Wellbutrin, Lamictal, Seroquel Code status: Full code DVT: SCDs 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 Attestation of HP only, care immediately directed to hospitalist team - TIA - MRI - ASA, Statin - Harshil dvt prop Patient seen through remote audiovisual assessment through HIPAA compliant setup. All labs, flowsheets, and images reviewed. Date of Service: November 01, 2024 Billing Provider: KUSH SHORE Jr., KOTESHWAREDDY, RES November 01, 2024 20:00 KUSH SHORE Jr., DO November 02, 2024 04:32
[2024-11-01 20:15] LABS: HEMOGLOBIN A1C 5.5 % (4.5-6.2)
[2024-11-01 20:27] LABS: BILIRUBIN,URINE NEGATIVE (Neg); CLARITY,URINE CLEAR (Clear); COLOR,URINE YELLOW (Yellow); GLUCOSE, URINE NEGATIVE (Neg); KETONES,URINE NEGATIVE (Neg); LEUKOCYTE ESTERASE ,URINE NEGATIVE (Neg); NITRITES, URINE NEGATIVE (Neg); OCCULT BLOOD,URINE TRACE-INTACT (Neg); PROTEIN,URINE NEGATIVE (Neg); UROBILINOGEN,URINE 0.2 E.U/dL (0.2-1.0)
[2024-11-01 20:40] LABS: URINE AMPHETAMINE SCREEN NEGATIVE (Neg); URINE BARBITUATE SCREEN NEGATIVE (Neg); URINE BENZODIAZEPINES SCREEN NEGATIVE (Neg); URINE CANNABINOID SCREEN NEGATIVE (Neg); URINE COCAINE SCREEN NEGATIVE (Neg); URINE METHADONE SCREEN NEGATIVE (Neg); URINE OPIATE SCREEN NEGATIVE (Neg); URINE PHENCYCLIDINE SCREEN NEGATIVE (Neg)
[2024-11-01 20:44] LABS: UA COLLECTION TYPE CLN CATCH MIDSTREAM
[2024-11-01 20:47] LABS: BACTERIA,URINE FEW /HPF (Neg); RBC,URINE 0-2 /HPF (0-2); SQUAMOUS EPITHELIAL CELL,UR MODERATE /LPF (FEW); WBC,URINE 0-4 /HPF (0-4)
[2024-11-01 20:48] LABS: URIC ACID CRYSTALS FEW /HPF (NEGATIVE)
[2024-11-01] MEDS: quetiapine 100mg tablet PO SCH (21:03)
[2024-11-01] MEDS: apixaban 5mg tablet PO SCH (21:03)
[2024-11-01 21:15] VITALS: BP 133/69; RESP 16; TEMP 98.5; O2SAT 98
[2024-11-01] MEDS: normal saline 1000ml 1,000 ML IV SCH (22:13)
[2024-11-02] VITALS (8 sets, daily range): BP systolic 100–146; BP diastolic 51–93; PULSE 64–97; RESP 15–16; TEMP 97.3–98.3; O2SAT 95–99
[2024-11-02] MEDS: normal saline 500ml IV soln 500 ML IV ONE (03:01)
[2024-11-02 06:24] LABS: EOSINOPHILS # (AUTO) 0.3 X10'3 (0-0.9); EOSINOPHILS % (AUTO) 5.8 % (0-6); HEMATOCRIT 33.8 % (35.0-45.0); HEMOGLOBIN 11.4 g/dl (12.0-16.0); LYMPHOCYTES # (AUTO) 1.9 X10'3 (1.1-4.8); LYMPHOCYTES % (AUTO) 43.6 % (21-51); MEAN CORPUSCULAR HEMOGLOBIN 29.5 PG (27.0-31.0); MEAN CORPUSCULAR HGB CONC 33.8 g/dL (33.0-36.5); MEAN CORPUSCULAR VOLUME 87.2 FL (78-98); MEAN PLATELET VOLUME 9.3 FL (7.4-10.4); MONOCYTES # (AUTO) 0.4 X10'3 (0-0.9); MONOCYTES % (AUTO) 10.2 % (2-12); NEUTROPHILS # (AUTO) 1.7 X10'3 (1.8-7.7); NEUTROPHILS % (AUTO) 39.4 % (42-75); PLATELET COUNT 184 X10'3 (140-440); RED BLOOD COUNT 3.87 X10'6 (4.20-5.60); RED CELL DISTRIBUTION WIDTH 15.8 % (11.5-14.5); WHITE BLOOD COUNT 4.4 X10'3 (4.5-11.0)
[2024-11-02 06:43] LABS: ALANINE AMINOTRANSFERASE 13 U/L (12-78); ALBUMIN 2.8 G/DL (3.4-5.0); ALBUMIN/GLOBULIN RATIO 0.9 (1.1-1.5); ALKALINE PHOSPHATASE 82 IU/L (46-116); ANION GAP 8 (8-16); ASPARTATE AMINO TRANSFERASE 11 U/L (10-37); BILIRUBIN,TOTAL 0.3 MG/DL (0.1-1.0); BLOOD UREA NITROGEN 21 MG/DL (7-18); BUN/CREATININE RATIO 19.6 (10.0-20.0); CALCIUM 8.4 MG/DL (8.5-10.1); CHLORIDE 112 MMOL/L (99-107); CHOL/HDL RATIO 2.3 (0.00-4.99); CHOLESTEROL 216 MG/DL (0-200); CREATININE 1.07 MG/DL (0.40-0.90); GLUCOSE 94 MG/DL (70-104); HDL CHOLESTEROL 93 MG/DL (35-60); LDL CHOLESTEROL 110 MG/DL (50-100); POTASSIUM 4.3 MMOL/L (3.5-5.1); SODIUM 144 MMOL/L (135-145); TOTAL CARBON DIOXIDE 24.5 MMOL/L (24-32); TOTAL PROTEIN 5.9 G/DL (6.4-8.2); TRIGLYCERIDES 47 MG/DL (20-135); eCRCL 49 ML/MIN; eGFR 50 ML/MIN
[2024-11-02] MEDS: THYROID ARMOUR PO SCH (07:49)
[2024-11-02] MEDS: atorvastatin 20mg tablet PO SCH (08:00)
[2024-11-02] MEDS: aspirin 81mg, enteric-coated 1 TAB TABLET.DR PO SCH (08:00)
[2024-11-02] MEDS: LAMOTRIGINE PO SCH (08:00)
--- NOTE | 2024-11-02 18:50 | RADIOLOGY REPORT ---
EXAM: MR MRI HEAD CLINICAL HISTORY: CVA/TIA COMPARISON: CT HEAD on DOS: 05/05/22, CT HEAD on DOS: 06/22/20 TECHNIQUE: Multiplanar, multisequence magnetic resonance imaging of the brain was performed without intravenous contrast. FINDINGS: Moderate diffuse brain atrophy. Mild to moderate chronic small-vessel ischemic changes. No hemorrhages, masses, mass effect, midline shift, herniation or cytotoxic edema following a large v ascular territory. No intra-axial or extra-axial fluid collections. No evidence of hydrocephalus. Th e basal cisterns are patent. The pituitary gland, sella and parasellar regions areunremarkable. The cerebellar tonsils are normal position. The cerebellum is unremarkable. The orbits and globes are unremarkable. Minimal mucoperiosteal thickening of the ethmoid air cells. Otherwise, the paranasal sinuses and mastoids are clear. There are No worrisome calvarial lesions. IMPRESSION: No evidence of acute intracranial abnormalities.
--- NOTE | 2024-11-02 19:12 | PROGRESS NOTE ---
Daily Progress Note Providers to CC ~ Antibiotic Timeout Antibiotic Ordered?: No Subjective No complaints patient feels back to her baseline Objective Vital Signs Date Time Temp Pulse Resp B/P (MAP) Pulse Ox O2 Delivery O2 Flow Rate FiO2 11/02/24 18:30 103 11/02/24 10:00 97.7 16 114/63 (80) 97 Room Air 11/02/24 08:00 0.0 21 Result Diagram: 11/02/24 0531 11/02/24 0531 Any bed in nonacute distress HEENT normal oral mucosa no JVD Lungs with normal bilateral entry no crackles Heart normal rate and rhythm S1-S2 Abdomen is soft nontender bowel sounds are present Extremities no edema plus two pulses Awake alert motor and sensory intact Coagulation Studies Laboratory Tests Test 11/01/24 15:26 Prothrombin Time 10.9 SECONDS (9.0-12.0) INR International Normalized Ratio 1.1 INR Activated Partial Thromboplast Time 27 SECONDS (22-32) Coagulation Comments Problem\Assessment\Plan Patient presents to the hospital with the acute onset of aphasia that resolved in a few hours; no associated diplopia but had difficulty with balance; MRI of the head with no acute stroke; patient had TIA; continue Eliquis per Neurology recommendations; on Lipitor; no history of smoking or history of diabetes; CT of the head and neck negative for significant stenosis or aneurysm History of paroxysmal atrial fibrillation Date of Service: November 02, 2024 Billing Provider: VICKY MCCULLOUGH MD Common Visit Codes: 21492-NTZBKYPEAL INP/OBS CARE(HIGH) VICKY MCCULLOUGH MD November 02, 2024 19:12
[2024-11-03 02:00] VITALS: BP 135/69; PULSE 94; RESP 16; TEMP 97.6; O2SAT 97
[2024-11-03 05:00] VITALS: BP 126/66; PULSE 96; RESP 16; TEMP 97; O2SAT 96
[2024-11-03 06:20] LABS: BASOPHILS # (AUTO) 0.1 X10'3 (0-0.2); BASOPHILS % (AUTO) 1.2 % (0-1); EOSINOPHILS # (AUTO) 0.3 X10'3 (0-0.9); HEMATOCRIT 33.6 % (35.0-45.0); HEMOGLOBIN 11.3 g/dl (12.0-16.0); LYMPHOCYTES # (AUTO) 1.8 X10'3 (1.1-4.8); LYMPHOCYTES % (AUTO) 34.1 % (21-51); MEAN CORPUSCULAR HEMOGLOBIN 29.4 PG (27.0-31.0); MEAN CORPUSCULAR HGB CONC 33.8 g/dL (33.0-36.5); MEAN PLATELET VOLUME 9.3 FL (7.4-10.4); MONOCYTES # (AUTO) 0.5 X10'3 (0-0.9); MONOCYTES % (AUTO) 10.1 % (2-12); NEUTROPHILS # (AUTO) 2.6 X10'3 (1.8-7.7); NEUTROPHILS % (AUTO) 49.6 % (42-75); PLATELET COUNT 177 X10'3 (140-440); RED BLOOD COUNT 3.86 X10'6 (4.20-5.60); RED CELL DISTRIBUTION WIDTH 15.3 % (11.5-14.5); WHITE BLOOD COUNT 5.2 X10'3 (4.5-11.0)
[2024-11-03 06:40] LABS: ALANINE AMINOTRANSFERASE 16 U/L (12-78); ALBUMIN 2.7 G/DL (3.4-5.0); ALBUMIN/GLOBULIN RATIO 0.9 (1.1-1.5); ALKALINE PHOSPHATASE 80 IU/L (46-116); ANION GAP 9 (8-16); ASPARTATE AMINO TRANSFERASE 9 U/L (10-37); BILIRUBIN,TOTAL 0.3 MG/DL (0.1-1.0); BLOOD UREA NITROGEN 25 MG/DL (7-18); CALCIUM 8.5 MG/DL (8.5-10.1); CHLORIDE 112 MMOL/L (99-107); GLUCOSE 84 MG/DL (70-104); POTASSIUM 4.4 MMOL/L (3.5-5.1); SODIUM 145 MMOL/L (135-145); TOTAL CARBON DIOXIDE 23.6 MMOL/L (24-32); TOTAL PROTEIN 5.8 G/DL (6.4-8.2); eCRCL 52 ML/MIN; eGFR 54 ML/MIN
[2024-11-03] MEDS ORDERED: ATOR10TA87 PO (07:06)
--- NOTE | 2024-11-03 07:15 | CARDIOLOGY REPORT ---
APPROVED REPORT EXAM: Comprehensive 2D, Doppler, and color-flow Echocardiogram with saline. Patient Location: [address] Blood Pressure: 100/56 mmHg Heart Rate: 70-90 bpm Rhythm: Atrial Fibrillation Indications Evaluate for CVA/TIA AFIB Hypertension [employer] is Qi Delgado MD Previous echo 11/26/16 [facility] 60-65% EF 2D Dimensions LA Diam4.6 cm IVSd 1.3 (0.7-1.1cm) LVDd 4.0 cm PWd 1.3 (0.7-1.1cm) IVSs 1.5 (0.8-1.2cm) LVDs 2.5 (2.5-4.0cm) Aortic Root(2D) 2.9 cm PWs 1.6 (0.8-1.2cm) LVOT Diameter 2.00 (1.8-2.4cm) LVEF(%) 67.6 (>50%) Ao Asc Diam.3.01 cmIVC 20.59 mm FS (%) 37.1 % SV 47.8 ml CO 3.8 L/min M-Mode Dimensions MV EPSS 0.5 (<0.5cm) Aortic Valve AoV Peak Mark. 142.9 cm/s AoV VTI 26.7 cm AO Peak GR. 8.2 mmHg AO Mean GR. 4 mmHg LVOT VTI 24.87 cm LVOT Peak Mark. 129.3 cm/s PEPE(VTI)/BSA 2.93 cm2/m2 PEPE (VTI) 2.93 cm2 Mitral Valve MV E Velocity 130.7 cm/s MV Peak Gr. 10 mmHg MV DECEL TIME 244 ms MV PHT 72 ms MVA (PHT) 3.06 cm2 MR XFrh439.8 cm/s MV IFek382.2 cm/sMR PG Wko551.5 mmHg Tricuspid Valve TR P. Velocity 273 cm/s RAP ESTIMATE 10 mmHg TR Peak Gr. 30 mmHg RVSP 40 mmHg LEFT VENTRICLE Normal LV size and function. Mild concentric hypertrophy. LVEF is 65%. RIGHT VENTRICLE RV appears mildly dilated with normal contractility. RVSP is estimated at 40 mmHG. ATRIA Left atrium is moderately dilated. Saline study was performed with 2 IV injections of 10 ccs of agita laila normal saline at rest, with cough, and with valsalva. Negative saline study for right to left gisele w. AORTIC VALVE Trileaflet AV appears sclerotic without stenosis. No insufficiency. MITRAL VALVE MV is thickened with mild annular calcification and no stenosis. Moderate mitral regurgitation. TRICUSPID VALVE The tricuspid valve is normal in structure. Moderate tricuspid regurgitation. PULMONIC VALVE The pulmonary valve is normal in structure. Mild pulmonic regurgitation. GREAT VESSELS The aortic root is normal in size. The ascending aorta is normal in size. The IVC is normal in size a nd collapses >50% with inspiration. PERICARDIUM There is no pericardial effusion. Other Information Study Quality: Adequate Conclusion Normal LV size and function. Mild concentric hypertrophy. LVEF is 65%. RV appears mildly dilated with normal contractility. RVSP is estimated at 40 mmHG. Left atrium is moderately dilated. Saline study was performed with 2 IV injections of 10 ccs of agitated normal saline at rest, with cou gh, and with valsalva. Negative saline study for right to left flow. Trileaflet AV appears sclerotic without stenosis. No insufficiency. MV is thickened with mild annular calcification and no stenosis. Moderate mitral regurgitation. The tricuspid valve is normal in structure.Moderate tricuspid regurgitation. The pulmonary valve is normal in structure. Mild pulmonic regurgitation. There is no pericardial effusion.
[2024-11-03 08:00] VITALS: RESP 16; O2SAT 96
[2024-11-03] MEDS: thyroid, pork 30mg tablet PO SCH (08:20)
[2024-11-03 10:00] VITALS: BP 147/91; PULSE 92; RESP 16; TEMP 97.4; O2SAT 97
--- NOTE | 2024-11-03 18:36 | DISCHARGE SUMMARY ---
Discharge Summary Providers to CC ~ Discharge Summary Admission Diagnosis: CVA/TIA Hospital Course DATE OF ADMISSION: November 01, 2024 DATE OF DISCHARGE: Nov 03 2024 Discharge Diagnosis\Comment: Possible TIA History of paroxysmal atrial fibrillation History of depression History of high blood pressure Operations\Procedures: None Consultants: Tele neurology Complications: None Condition on DC: Stable Discharge Summary: This is a 74 years old female who came in with an episode of aphasia; there were no other symptoms associated with her aphasia which lasted for a few hours and by next day completely resolved; patient was seen by tele neurology who rec ommended workup; patient has a history of paroxysmal atrial fibrillation and she has been taking her Eliquis without missing it; CT of the head without contrast showed no intracranial hemorrhage and [id number] chronic microvascular ischemic changes; CTA of the head and neck showed no evidence of hemodynamically significant stenosis dissection or pseudoaneurysm; echocardiogram showed an EF of 65% and the bubble study was negative; MRI of the head showed no evidence of acute intracranial abnormalities; been A1c was 5.5 and TSH 3.3; patient condition remained stable and on the day of discharge patient was discharged home follow up with her primary care physician within 1-2 weeks Patient received on discharge prescription for Lipitor 40 mg p.o. daily; patient to resume her Eliquis 5 mg p.o. b.i.d. Wellbutrin 150 mg p.o. q.12 hours Cardizem SR 120 mg p.o. b.i.d. Lamictal 50 mg daily Seroquel 100 mg at bedtime Entresto 24/261 tablet p.o. b.i.d. armor thyroid 60 mg daily On day of discharge blood work sodium 145 potassium 4.4 CO2 23 BUN 25 and creatinine one; white count 5.2 H and H 11.3/33 with 177 platelets In the physical examination temperature 97.4 heart rate 92 breathing 16 blood pressure 147/91 97% on room air HEENT normal oral mucosa no JVD lungs with normal bilateral entry no crackles no wheezing heart normal rate and rhythm S1- S2 no murmurs abdomen is soft nontender bowel sounds are present extremities no edema plus two pulses she is awake and alert *Problems/Diagnosis: (1) Afib Status: Chronic (2) HTN (hypertension) Status: Chronic Total Time Spent on D/C: > 30 Minutes Date of Service: November 03, 2024 Billing Provider: VICKY MCCULLOUGH MD Common Visit Codes: 07280-TBR/OBS DISCH DAY >30min VICKY MCCULLOUGH MD November 03, 2024 18:35
== END 2024-11-03 12:25 | disposition home or self-care (01) | DRG 69 ==
LOC: ER 15:13 → ED HOLD 19:49 → ORTHO 4S 21:17
PROVIDERS: ADMIT Internal Medicine Critical Care Medicine; ATTEND Internal Medicine
PROC: B3251ZZ Computerized Tomography (CT Scan) of Bilateral Common Carotid Arteries using Low Osmolar Contrast (ICD-10-PCS; principal; 2024-11-01)
PROC: B32G1ZZ Computerized Tomography (CT Scan) of Bilateral Vertebral Arteries using Low Osmolar Contrast (ICD-10-PCS; 2024-11-01)
PROC: B32R1ZZ Computerized Tomography (CT Scan) of Intracranial Arteries using Low Osmolar Contrast (ICD-10-PCS; 2024-11-01)
PROC: B3281ZZ Computerized Tomography (CT Scan) of Bilateral Internal Carotid Arteries using Low Osmolar Contrast (ICD-10-PCS; 2024-11-01)
DX: G45.9 Transient cerebral ischemic attack, unspecified (principal); N17.0 Acute kidney failure with tubular necrosis; I48.20 Chronic atrial fibrillation, unspecified; I10 Essential (primary) hypertension; F32.A Depression, unspecified; F41.9 Anxiety disorder, unspecified; Z91.041 Radiographic dye allergy status; Z79.01 Long term (current) use of anticoagulants; Z79.899 Other long term (current) drug therapy; Z85.3 Personal history of malignant neoplasm of breast; E86.0 Dehydration
CPT/HCPCS: 36415; 70450; 70496; 70498; 70551; 71045; 80048; 80053; 80061; 80305; 81001; 82948; 83036; 84443; 85025; 85610; 85730; 87081; 92508; 92616; 93005; 93306; 96374; 99291; G0378; J1200; J7030; J7040; Q9967